=== PATIENT | female | born 1950 | race Caucasian/White ===

== ENCOUNTER → 2022-03-19 | Outpatient (CLI) | payer MEDICARE, OTHER, SELFPAY ==
[2022-03-19 15:09] LABS: Absolute Lymphocyte Count 1.39 X10^3/uL (0.83-4.51); Absolute Neutrophil Count 4.6 X10^3/uL (2.0-7.7); Basophil# 0.05 X10^3/uL; Basophil% 0.8 % (0-1); Eosinophil# 0.13 X10^3/uL; Hematocrit 40.7 % (37-47); Lymphocyte # 1.39 X10^3/ul (0.83-4.51); Lymphocyte % 21.2 % (19-41); Mean Corp Hgb Conc 31.9 g/dL (32-36); Mean Corpuscular Hgb 29.3 pg (27.0-32.0); Mean Corpuscular Volume 91.7 fL (81-99); Mean Platelet Vol. 10.1 fl (6.2-12.0); Monocyte# 0.44 X10^3/uL; Monocyte% 6.7 % (0-10); NRBC Flagged by Analyzer 0 % (0-5); Neutrophil # 4.55 X10^3/uL (2.7-7.7); Neutrophil % 69.1 % (47-70); Platelet Count 241 K/mm3 (150-450); RBC Distribution Width CV 12.9 % (11.6-14.6); RBC Distribution Width SD 43.3 fl (35.1-43.9); Red Blood Count 4.44 M/mm3 (4.2-5.4); White Blood Count 6.6 K/mm3 (4.4-11.0)
[2022-03-19 15:49] LABS: ALB/GLOB Ratio 1.3 RATIO (0.9-2.4); AST(SGOT) 36 U/L (15-37); Alanine Aminotransfer ALT/SGPT 44 U/L (13-56); Albumin, Serum 3.9 g/dL (3.2-5.0); Alkaline Phosphatase 96 U/L (45-117); Anion Gap 8 (5-15); BUN 14 mg/dL (7-18); BUN/Creat Ratio 17.6 RATIO (10-20); Calcium,Total 9.2 mg/dL (8.5-10.1); Chloride 105 mmol/L (98-107); EST Glomerular Filtration Rate 76 mL/min (>60); Est Glom Filt Rate - Afr Amer 92 mL/min (>60); Glucose 86 mg/dL (74-106); Potassium 3.8 mmol/L (3.5-5.1); Protein, Total 6.9 g/dL (6.4-8.2); Sodium Level 142 mmol/L (136-145)
== END | disposition home or self-care (01) ==
PROVIDERS: PCP Student in an Organized Health Care Education/Training Program; Referring Provider Dermatology Pediatric Dermatology; Visit Provider Dermatology Pediatric Dermatology
DX: C44.612 Basal cell carcinoma of skin of right upper limb, including shoulder (principal); D69.2 Other nonthrombocytopenic purpura; D48.5 Neoplasm of uncertain behavior of skin; L53.8 Other specified erythematous conditions; L82.1 Other seborrheic keratosis; L81.4 Other melanin hyperpigmentation; Z08 Encounter for follow-up examination after completed treatment for malignant neoplasm; D18.01 Hemangioma of skin and subcutaneous tissue; L57.8 Other skin changes due to chronic exposure to nonionizing radiation; Z71.89 Other specified counseling
CPT/HCPCS: 36415; 80053; 85025

== ENCOUNTER 2024-04-25 14:58 | Emergency (ER) | payer MEDICARE, OTHER, SELFPAY ==
[2024-04-25 15:00] VITALS: BP 110/75; PULSE 102; RESP 18; TEMP 36.9; O2SAT 98
[2024-04-25 15:02] VITALS: BMI 30.2
--- NOTE | 2024-04-25 16:38 | ED.VIS.LOWEX ---
HPI History of Present Illness Chief Complaint: Lower Extremity Injury Informant: patient Narrative Narrative: Patient is a 73-year-old female with history of prior right total hip replacement, and per the early stages of dementia presenting with sudden onset of right knee pain. Patient states she was getting out of her chair and had reached to her left to put down her phone. She took 1 step and then had severe pain in her right knee. She states it is behind her knee and radiates down her calf. She feels that it is better when she points her toes down and worse when she pulls her foot back (dorsiflexes). Denies any trauma. Denies any popping sound or sensation. She states it almost feels like when a knuckle needs to pop but does not. Denies any numbness or tingling. No other injuries reported. No other complaints or concerns at this time. She did not fall. Took an 81 mg aspirin today. Said that he notes her pain. PFSH PFSH Allergy/AdvReac Type Severity Reaction Status Date / Time codeine Allergy Abd Verified 04/25/24 14:59 cramps/diarrhea Social History Smoking Status: Never smoker ROS ROS ED Constitutional Constitutional ED: Denies chills or fever(s) Musculoskeletal Musculoskeletal: Reports other Details: right knee pain Integumentary Denies Abrasions or rash Neurologic Neurologic: Denies paresthesias or weakness Hematologic/Lymphatic Hematologic/Lymphatic: Denies easy bleeding or easy bruising EXAM Physical Exam Const Vital Signs: 04/25/24 15:00 04/25/24 18:51 Temperature 98.5 F Temperature Source Oral Pulse Rate 102 H 77 Respiratory Rate 18 19 H Blood Pressure 110/75 194/98 H Blood Pressure Mean 86 130 Pulse Ox 98 Oxygen Delivery Method Room Air Positive well nourished and well developed General Appearance ED: well developed and NAD HEENT Reports moist mucous membranes Neck full ROM Chest Wall inspection of chest normal Resp normal respiratory effort and clear to auscultation bilaterally Cardio regular rate and regular rhythm Cardio Narrative: 2+ DP pulses Extremity normal to inspection Extremity Narrative: Decreased range of motion of the right knee. No obvious deformity. Slight swelling but no significant joint effusion present of the right knee. Normal extensor mechanism/quadricep tendon mechanism. No pain with range of motion of the right hip. No deformity of the femur or lower leg present. Compartments are soft of the right lower extremity. Normal Alegre test. Pain is increased with dorsiflexion and made better with plantarflexion however patient is able to do both of these movements. Patient is increased pain with valgus and varus stress but no change with flexion extension of the knee. Points to pain in the posterior knee. No other extremity pain or deformity/tenderness. Neuro oriented x3, moves all extremities and no sensory deficits noted Sensorium / Orientation: alert Motor Exam: strength 5/5 throughout; Negative for general weakness MDM MDM MDM Narrative Medical decision making narrative: Patient's evaluated for atraumatic right knee pain. She stood up and suddenly had pain. Overall well-appearing. Vital signs significant for tachycardia on arrival but on recheck her heart rate improved but she becomes more hypertensive. Not sure if it is because she is given more anxious to leave. She has improvement of pain with 25 mcg of IV fentanyl. Is given a dose of Zofran and then Tylenol. Initially had ordered morphine but due to history of confusion we will DC that medication. X-ray viewed by myself as well as radiology does not show any acute fracture or abnormality. Patient is given a prescription. Has a walker at home. We discharged home with instruction to take Tylenol and use her home walker. Is able to ambulate in the ER with minimal pain. Will follow-up with her orthopedist. Is given a disc of her images. Is given local orthopedic follow-up should she choose. Given return precautions. Patient and agreeable with plan of care. Radiography Diagnostic Testing: Clinical Impression(s) from Imaging Studies Femur X-Ray 04/25/24 16:50 IMPRESSION: No definite acute or significant abnormality seen. Electronically Signed: Noble Jane MD at 17:32 EST , Knee X-Ray 04/25/24 16:50 IMPRESSION: Negative right knee x-rays. Electronically Signed: Charles Koehler MD at 17:21 EST , Discharge Plan Triage Chief Complaint: Lower Extremity Injury ED Provider: Rukhsana Durbin Dx/Rx/DC Orders Instructions: ED Knee Sprain Primary Care Provider: Endy Virk Referrals: Endy Virk DO [Primary Care Provider] - Ronen Meraz MD [Med Staff - Active Staff] - As Needed Activity Restrictions/Additional Instructions: Use [place] wrap as needed for pain stability. Ice to the area. Take Tylenol every 6-8 hours for pain. Use your walker at home to help with ambulation. If your symptoms are worsening or you are unable to safely ambulate around your house please return to the emergency room. Follow-up with your orthopedist in [place] as we discussed. You have been given information for local orthopedist as well. Print Language: Kazakh Disposition Disposition: Home, Self Care
[2024-04-25] MEDS: Ondansetron 4 MG/2 ML Vial IV (16:44)
[2024-04-25] MEDS: fentaNYL 100 MCG/2 ML Ampul 25 MCG IV (16:46)
--- NOTE | 2024-04-25 16:50 | RAD_ITS ---
STUDY: X-RAY - RIGHT FEMUR REASON FOR STUDY: Female, 73 years old. Injury/Pain TECHNIQUE: 3 view(s) of the femur. COMPARISON: None. FINDINGS: Satisfactory appearance of right hip arthroplasty. No dislocation. No evidence for loosening. No periprosthetic fracture. Otherwise normal visualized femur. Normal visualized soft tissue structure. RAD/Femur Min 2 Views IMPRESSION: No definite acute or significant abnormality seen. Electronically Signed: Noble Jane MD at 17:32 EST ,
--- NOTE | 2024-04-25 16:50 | RAD_ITS ---
EXAM: XR RIGHT KNEE COMPLETE, 4 OR MORE VIEWS CLINICAL INDICATION: Injury/Pain TECHNIQUE: Four or more views of the right knee. COMPARISON: No relevant prior studies available. FINDINGS: BONES/JOINTS: Unremarkable. No acute fracture. No subluxation. Normal alignment. Preservation of the joint space. No sclerotic or destructive changes observed. SOFT TISSUES: Unremarkable. No soft tissue swelling or gas. No radiopaque foreign body. RAD/Knee 4 or More Views IMPRESSION: Negative right knee x-rays. Electronically Signed: Charles Koehler MD at 17:21 EST ,
[2024-04-25] MEDS: Acetaminophen 325 MG Tablet 650 MG PO (18:30)
[2024-04-25 18:51] VITALS: BP 194/98; PULSE 77; RESP 19
== END 2024-04-25 19:07 | disposition home or self-care (01) ==
PROVIDERS: Emergency Provider Emergency Medicine; PCP Student in an Organized Health Care Education/Training Program; Visit Provider Emergency Medicine
DX: M25.562 Pain in left knee (principal); F03.90 Unspecified dementia, unspecified severity, without behavioral disturbance, psychotic disturbance, mood disturbance, and anxiety; Z96.641 Presence of right artificial hip joint
CPT/HCPCS: 73552; 73564; 96374; 96375; 99282; A4216; J2405